=== PATIENT | female | born 1960 | race African-American/Black ===

== ENCOUNTER 2018-05-26 10:05 | Emergency (ER) | payer OTHER ==
[2018-05-26 10:19] VITALS: TEMP 98.6; BMI 24.6
--- NOTE | 2018-05-26 11:01 | PDOC ---
History of Present Illness - General Chief Complaint: Shortness of Breath Stated Complaint: DIFFICULTY BREATHING Time Seen by Provider: 05/26/18 10:29 History Source: Patient Exam Limitations: No Limitations - History of Present Illness Initial Comments: 05/26/18 10:59 57y F hx of syncope, cocaine abuse, seizure, bipolar disorder, htn, anemia, asthma presets with a complaint of sob starting around 1am. Patient states that for the last week to 10 days she has felt shortness of breath predominantly at night associated with a cough the patient also notes some nasal congestion, see worse tonight mix throat feels dry. Pt notes the cough/congestion has been going to for approx 1 week, she had seen ENT and had some meds as well as pmd who started her on a zpack that she complete today. she endorses subjective fever a few days ago but non recently.pt denies any recent leg swelling, calf pain, hemoptysis. denies any cp, basilio. notes the sob seems to be worse at night. pt also endorses some chronic L shoulder/arm pain for 4-5 months since she had R shoulder surgery last december. no change to that from baseline. pt was given albuterol by EMS with mild improvment. social: daily smoker surgical hx: multiple ortho surgeries Past History - Past Medical History Allergies/Adverse Reactions: Allergies Allergy/AdvReac Type Severity Reaction Status Date / Time No Known Drug Allergies Allergy Verified 07/22/12 15:22 Home Medications: Ambulatory Orders Albuterol Sulfate Inhaler - [Ventolin HFA Inhaler -] 2 inh IH Q4H PRN 07/22/12 Aripiprazole [Abilify -] 20 mg PO DAILY 07/22/12 Calcium Carbonate/Vitamin D3 [Calcium 500 + D Tablet] 1 each PO TID 07/22/12 Albuterol Sulfate Inhaler - [Ventolin HFA Inhaler -] 1 - 2 inh PO Q4H PRN #1 inhaler 05/26/18 Ambien 10 mg PO HS 05/26/18 Amlodipine Besylate [Norvasc -] 0 mg PO DAILY 05/26/18 Ascorbic Acid [Vitamin C] 500 mg PO DAILY 05/26/18 Clonazepam [Klonopin] 1 mg PO BID 05/26/18 Ferrous Sulfate [Feosol] 325 mg PO DAILY 05/26/18 Guaifenesin AC [Robitussin AC] 10 ml PO QID PRN #120 ml MDD 40 05/26/18 Multivitamin [Multiple Vitamins] 1 each PO DAILY 05/26/18 Oxycodone HCl/Acetaminophen [Percocet 10-325 mg Tablet] 1 each PO TID 05/26/18 Anemia: Yes (2 tabs po bid) Asthma: Yes Cancer: No Cardiac Disorders: No CVA: No COPD: No CHF: No Dementia: No Diabetes: No GI Disorders: No Disorders: No HTN: No Hypercholesterolemia: No Kidney Stones: No Liver Disease: No Seizures: Yes (alcohol related-last episode was a wk. ago) Thyroid Disease: No - Surgical History Abdominal Surgery: Yes (gastric bypass on 10/16/11 at [facility]) Appendectomy: No Cardiac Surgery: No Cholecystectomy: No Lung Surgery: No Neurologic Surgery: No Orthopedic Surgery: Yes (total hip replacement) - Reproductive History PID: No - Suicide/Smoking/Psychosocial Hx Smoking History: Current some day smoker Have you smoked in the past 12 months: Yes Number of Cigarettes Smoked Daily: 2 If you are a former smoker, when did you quit?: 6 months ago Information on smoking cessation initiated: No 'Breaking Loose' booklet given: 07/22/12 Hx Alcohol Use: Yes Drug/Substance Use Hx: Yes Substance Use Type: Alcohol, Cocaine Hx Substance Use Treatment: Yes Respiratory Specific PMHX - Complaint Specific PMHX TB (Tuberculosis): No Review of Systems - Review of Systems Able to Perform ROS?: Yes Comments:: 05/26/18 11:51 Constitutional - no reported Fever, Chills, HEENT: +nasal congestion no reported vision changes, sore throat Respiratory: +sob, no reported cough, hemoptysis Cardiac: no reported chest pain, palpitations, light headedness, leg swelling Abd/GI: no reported abd pain, nausea, vomiting, blood per rectum, melena, diarrhea : no reported dysuria, frequency, discharge Musculskelatal - + chronic R arm pain no reported back pain, joint swelling skin - no reported bruising, erythema, rash neurological: no reported headache, numbness, focal weakness, tingling, ataxia, hematologic: no reported easy bruising, easy bleeding *Physical Exam - Vital Signs Last Vital Signs Temp Pulse Resp BP Pulse Ox 98.6 F 80 18 145/85 99 05/26/18 10:17 05/26/18 10:17 05/26/18 10:17 05/26/18 10:17 05/26/18 10:17 - Physical Exam Comments: 05/26/18 11:51 GENERAL: The patient is awake, alert, and fully oriented, Nontoxic - in no acute distress. HEAD: Normocephalic, atraumatic. EYES: extraocular movements intact, sclera anicteric, conjunctiva clear. ENT: Normal voice, Moist mucous membranes. NECK: Normal range of motion, supple LUNGS: Breath sounds equal, clear to auscultation bilaterally. No wheezes, no rhonchi, no rales. no respiraotry distres, speaking complete sentences HEART: Regular rate and rhythm, normal S1 and S2 without murmur, rub or gallop. ABDOMEN: Soft, nontender, normoactive bowel sounds. No guarding, no rebound. No CVA tenderness EXTREMITIES: Normal range of motion, trace edema. neg homans sign, no clubbing or cyanosis. No cords, erythema, or tenderness. NEUROLOGICAL: No facial assymetry, Normal speech, PSYCH: Normal mood, normal affect. SKIN: Warm, Dry, normal turgor 05/26/18 11:54 Moderate Sedation - Procedure Monitoring Vital Signs: Procedure Monitoring Vital Signs Temperature 98.6 F 05/26/18 10:17 Pulse Rate 80 05/26/18 10:17 Respiratory Rate 18 05/26/18 10:17 Blood Pressure 145/85 05/26/18 10:17 O2 Sat by Pulse Oximetry (%) 99 05/26/18 10:17 Heart Score/ECG Review - ECG Impressions Comment:: 05/26/18 13:49 Twelve-lead EKG was performed and reviewed by me. There is normal sinus rhythm with a normal rate. Rate of 76 The axis is normal. The intervals are normal. There is normal R wave progression There are no ST or T wave abnormalities. Impression: Normal twelve-lead EKG ED Treatment Course - LABORATORY CBC & Chemistry Diagram: 05/26/18 12:25 05/26/18 12:25 Medical Decision Making - Medical Decision Making 05/26/18 13:47 I suspect the patient's symptoms may be secondary to postnasal drip. Consider possible CHF. Blood work was obtained. cxr was reviewed there is no signs of focal infiltrates/pneumonia EKG was normal with no signs of ACS Patient was given a nebulizer with significant improvement of her symptoms. The patient's CMP is normal I will discharge patient with an antitussive and a mucolytic 05/26/18 14:35 pts labs are normal pt feelnig improved will dc the pt back home with albuterol robitussin and supportive care athome suspect viral syndrome I discussed the physical exam findings, ancillary test results and final diagnoses with the patient. I answered all of the patient's questions. The patient was satisfied with the care received and felt comfortable with the discharge plan and treatment plan. The patient will call their primary care physician within 24 hours to arrange follow-up and will return to the Emergency Department with any new, persistent or worsening symptoms. *DC/Admit/Observation/Transfer Diagnosis at time of Disposition: Shortness of breath Upper respiratory infection Qualifiers: URI type: acute pharyngitis Pharyngitis/tonsillitis etiology: unspecified etiology Qualified Code(s): J02.9 - Acute pharyngitis, unspecified - Discharge Dispostion Disposition: HOME Condition at time of disposition: Improved Decision to Admit order: No - Referrals Referrals: Tameka Kee MD [Primary Care Provider] - - Patient Instructions Printed Discharge Instructions: DI for Shortness of Breath Additional Instructions: Return to the emergency department immediately with ANY new, persistent or worsening symptoms. I suspect that your shortness of breath may be due to postnasal drip as it typically occurs at night. Take the medication prescribed as directed for your sypmtoms. You MUST call and follow up with your doctor in 3-4 days for further evaluation of your symptoms. Results were discussed with you. Please make sure your doctor reviews the results of your emergency evaluation. If you had any xrays during your visit, it was read preliminarily by myself, a Radiologist will review it and if there are any additional findings we will call you. Print Language: NAURUAN - Post Discharge Activity
[2018-05-26] MEDS ORDERED: ALBUTEROL SO4 2.5/IPRATROPIUM 0.5 INH SOL 3 ML VIAL.NEB. NEB ONE ×2 (11:12→11:20)
[2018-05-26 12:12] LABS: VENOUS PC02 41.1 mmHg (41-51); VENOUS PH 7.39 (7.31-7.41); VENOUS PO2 43.6 mmHg (30-40)
[2018-05-26 13:13] LABS: BASO % 0.6 % (0-2.0); HEMATOCRIT 35.3 % (32.4-45.2); HEMOGLOBIN 11.6 GM/dL (10.7-15.3); LYMPH % 40.5 % (8-40); MCH 25.7 pg (25.7-33.7); MCHC 32.7 g/dl (32.0-36.0); MEAN CELL VOLUME 78.5 fl (80-96); MEAN PLT VOLUME 9.1 fl (7.5-11.1); MONO % 7.5 % (3.8-10.2); NEUT % 50.4 % (42.8-82.8); PLATELET COUNT 163 K/MM3 (134-434); RDW 14.1 % (11.6-15.6); WHITE BLOOD COUNT 8.4 K/mm3 (4.0-10.0)
[2018-05-26 13:45] VITALS: BP 140/80; PULSE 76
[2018-05-26 13:51] LABS: ALBUMIN 3.8 g/dl (3.4-5.0); ALK PHOS 75 U/L (45-117); ANION GAP 5 MMOL/L (8-16); BILIRUBIN,TOTAL 0.2 mg/dL (0.2-1); BLOOD UREA NITROGEN 10 mg/dL (7-18); CALCIUM 8.7 mg/dL (8.5-10.1); CHLORIDE 112 mmol/L (98-107); CO2 27 mmol/L (21-32); CREATININE 0.8 mg/dL (0.55-1.3); GLUCOSE,RANDOM 88 mg/dL (74-106); N-TERMINAL BNP 64.2 pg/ml (5-125); SGOT/AST 28 U/L (15-37); SGPT/ALT 24 U/L (13-61); SODIUM 144 mmol/L (136-145)
[2018-05-26] MEDS ORDERED: oxyCODONE HCL 5 MG TABLET ONE (14:49)
--- NOTE | 2018-05-26 15:38 | EKG ---
Test Reason : Blood Pressure : / mmHG Vent. Rate : 076 BPM Atrial Rate : 076 BPM P-R Int : 148 ms QRS Dur : 090 ms QT Int : 402 ms P-R-T Axes : 051 -12 043 degrees QTc Int : 452 ms POOR DATA QUALITY, INTERPRETATION MAY BE ADVERSELY AFFECTED NORMAL SINUS RHYTHM NORMAL ECG NO PREVIOUS ECGS AVAILABLE Confirmed by MD JESUS ALBERTO, NIURKA ([id number]) on 05/26/2018 3:38:03 PM Referred By: Confirmed By:NIURKA GRANDA MD
== END 2018-05-26 15:04 | disposition home or self-care (01) ==
LOC: JER 10:05
PROC: 3E0F7GC Introduction of Other Therapeutic Substance into Respiratory Tract, Via Natural or Artificial Opening (ICD-10-PCS; principal; 2018-05-26)
DX: J02.9 Acute pharyngitis, unspecified (principal); I10 Essential (primary) hypertension; D64.9 Anemia, unspecified; G40.509 Epileptic seizures related to external causes, not intractable, without status epilepticus; F10.10 Alcohol abuse, uncomplicated; F31.9 Bipolar disorder, unspecified; Z98.84 Bariatric surgery status; Z96.649 Presence of unspecified artificial hip joint
CPT/HCPCS: 36415; 71046-TC-FY; 80053; 82550; 82553; 82803; 83880; 84484; 85025; 93005; 93010; 94640; 99283-25